=== PATIENT | male | born 1940 | race Caucasian/White ===

== ENCOUNTER → 2023-10-06 13:26 | Outpatient (REF) | payer MEDICARE, BC, SELFPAY | LOC: HWRAD 13:26 | PROVIDERS: ATTENDING PHYSICIAN Internal Medicine | DX: R41.3 Other amnesia (principal) | CPT/HCPCS: 70450 ==

== ENCOUNTER → 2023-10-27 10:56 | Outpatient (REF) | payer MEDICARE, BC, SELFPAY | LOC: HWRAD 10:56 | PROVIDERS: ATTENDING PHYSICIAN Physician Assistant; FAMILY PHYSICIAN Internal Medicine | DX: R19.4 Change in bowel habit (principal); R63.4 Abnormal weight loss; E11.65 Type 2 diabetes mellitus with hyperglycemia | CPT/HCPCS: 74177; Q9967 ==